=== PATIENT | male | born 1950 | race Asian ===

== ENCOUNTER 2023-05-27 16:05 | Emergency (ER) | payer MEDICARE, OTHER ==
[2023-05-27 16:20] VITALS: O2SAT 97
--- NOTE | 2023-05-27 16:20 | ED Physician Documentation ---
PD HPI DYSPNEA - Stated complaint Stated Complaint: HIGH BP - Chief complaint Chief Complaint: General - History obtained from History obtained from: Patient - History of Present Illness Timing - onset: How many days ago (has had increasing BP over the past week or two and to 150s systolic the past several days. Noted highter this morning. Talked with PMD and had HTN med increased yesterday.) Timing - onset during: Light activity Timing - details: Gradual onset Inciting event(s): No: URI, Exercise Recently seen: Clinic Review of Systems Constitutional: denies: Fever, Chills Eyes: denies: Decreased vision Nose: denies: Rhinorrhea / runny nose, Congestion Throat: denies: Sore throat Respiratory: denies: Cough GI: denies: Vomiting, Diarrhea, Bloody / black stool Musculoskeletal: denies: Extremity swelling Neurologic: denies: Generalized weakness, Confused, Altered mental status, Headache PD PAST MEDICAL HISTORY - Past Medical History Past Medical History: Yes Cardiovascular: Hypertension, High cholesterol Respiratory: Sleep apnea, CPAP use Neuro: None Endocrine/Autoimmune: None GI: None : None HEENT: None Musculoskeletal: None Derm: None - Past Surgical History Past Surgical History: Yes HEENT: Tonsil/Adenoidectomy - Present Medications Home Medications: Ambulatory Orders Medication Instructions Recorded Confirmed Atorvastatin Calcium 20 mg PO DAILY 05/27/23 05/27/23 Lisinopril [Zestril] 40 mg PO DAILY 05/27/23 05/27/23 - Allergies Allergies/Adverse Reactions: Allergies Allergy/AdvReac Type Severity Reaction Status Date / Time No Known Drug Allergies Allergy Verified 05/27/23 16:10 - Social History Does the pt smoke?: No Smoking Status: Never smoker Does the pt drink ETOH?: No Does the pt have substance abuse?: No - Immunizations Immunizations are current?: Yes - POLST Patient has POLST: No PD ED PE NORMAL - Vitals Vital signs reviewed: Yes - General General: Alert and oriented X 3, No acute distress, Well developed/nourished - Neck Neck: Supple, no meningeal sign, No adenopathy, Thyroid normal - Cardiac Cardiac: RRR, No murmur - Respiratory Respiratory: Clear bilaterally - Abdomen Abdomen: Soft, Non tender - Derm Derm: Normal color, Warm and dry - Extremities Extremities: No edema, No calf tenderness / cord Results - Vitals Vitals: Vital Signs - 24 hr 05/27/23 05/27/23 16:13 16:50 Temperature 36.8 C Heart Rate 58 L 52 L Respiratory 16 16 Rate Blood Pressure 180/90 H 171/88 H O2 Saturation 97 97 Oxygen O2 Source Room air - Labs Labs: Laboratory Tests 05/27/23 16:50 Sodium 140 Potassium 4.5 Chloride 107 Carbon Dioxide 28 Anion Gap 5.0 L BUN 26 H Creatinine 1.5 H Estimated GFR (MDRD) 46 L Glucose 101 Calcium 9.1 Magnesium 1.9 Total Bilirubin 0.9 AST 22 ALT 17 Alkaline Phosphatase 69 Total Protein 6.5 Albumin 4.1 Globulin 2.4 Albumin/Globulin Ratio 1.7 Lipase 29 PD Medical Decision Making - ED course Complexity details: reviewed results (The patient's creatinine was elevated at 1 .5. He did look up on his MyChart through [facility] the most recent labs and his latest creatinine was 1.4 so similar in prior to that 1.3. Today's electrolytes and blood sugar are good. This was comforting to him.), considered differential, d/w patient ED course: The patient states his blood pressure has been well-controlled for a long time on hydrochlorothiazide with lisinopril. He was doing well enough that recently he has primary care discontinued the HCTZ portion he was just on lisinopril 20 mg. Over the last few months he has noticed his blood pressure increasing gradually from a regular 130s systolic to 140s and 150s. With that he contacted his primary care who suggested increasing the lisinopril to 40 mg. That was just started yesterday. His blood pressure today he noticed was quite elevated at 180/95 and then he took it again several times and it increased to 200/110. He did not have any symptoms. No headache, blurred vision, confusion, chest pain, dyspnea. He has not noticed any fluid retention or edema. No recent illness otherwise. He works out regularly and went for a 9 mile run several days ago without any noticeable decrement in his physical capacity. He is concerned about the number today. His blood pressure was decreasing a little bit and was 180 systolic on triage here. I talked with him about the general approach to not wanting to have a decrease rapidly with guidelines from the heart association as well as ACEP. He was concerned about his kidney function and being on the lisinopril could be reasonable to check that. Otherwise we will give it some time right now and recheck his blood pressure rash on return of blood tests and no intervention at this moment. Departure - Departure Disposition: 01 Home, Self Care Clinical Impression: Elevated blood pressure reading in office with diagnosis of hypertension, Mild renal insufficiency Condition: Stable Instructions: ED Hypertension Conf Out Of Control Comments: Your blood pressure seems to be drifting down without intervention per se. The last reading was 168/94 which is still elevated but not in a concerning level. General guidelines and treatment plans in the emergency room suggest not trying to make the blood pressure come down quickly as that will actually lead to more symptoms and problems acutely (fainting, stroke, etc from too low/abrupt of BP drop). At this point with that drifting down, I would just see how it is on your increased dose of lisinopril over the next 2 or 3 days. Take it morning and evening but not too many more times other than that. See what the trend is over the next few days and contact your primary care to see if they want to make any alterations in your medications. Your creatinine/kidney function is slightly abnormal but appears to be about the same as it has been on your most recent testing. The level was 1.5 today. Your other electrolytes and blood sugar are good. Regular activity as you have planned. Avoid added salt. You do not have to be on a sodium restricted diet per se though. Return if needed. In particular we would be concerned in the ER of elevated blood pressure associated with symptoms such as chest pain, shortness of breath, headache, confusion, blurred vision. These symptoms in conjunction with blood pressure elevation over 200 or so would be of concern but the blood pressure elevated without symptoms often we will see if it improves without acute intervention. Forms: PCP List
[2023-05-27 17:09] LABS: ALBUMIN 4.1 g/dL (3.2-5.5); ALBUMIN/GLOBULIN RATIO 1.7 (1.0-2.2); BILIRUBIN,TOTAL 0.9 mg/dL (0.2-1.0); CALCIUM 9.1 mg/dL (8.5-10.3); CREATININE 1.5 mg/dL (0.6-1.3); MAGNESIUM 1.9 mg/dL (1.7-2.3); POTASSIUM 4.5 mmol/L (3.5-4.5); TOTAL PROTEIN 6.5 g/dL (6.4-8.9)
[2023-05-27 17:40] VITALS: BP 152/87
== END 2023-05-27 17:31 | disposition home or self-care (01) ==
LOC: ED 16:05
DX: I10 Essential (primary) hypertension (principal); N28.9 Disorder of kidney and ureter, unspecified
CPT/HCPCS: 36415; 80053; 83690; 83735; 99283